=== PATIENT | female | born 1955 | race Caucasian/White ===

== ENCOUNTER 2017-10-15 17:30 | Emergency (ER) | payer OTHER ==
--- NOTE | 2017-10-15 17:37 | PDOC ---
Rapid Medical Evaluation Time Seen by Provider: 10/15/17 17:32 Medical Evaluation: 10/15/17 17:32 Pt presents with complaint of : low back pain x 3 days , Limited movement with bending On brief exam: no point tenderness, no weakness I have ordered the following: hip/pelvis, lumbar xray Pt will go to the Emergency Dept for further workup Discharge Disposition - Diagnosis Low back pain Qualifiers: Chronicity: acute Sciatica presence: without sciatica - Referrals Referrals: Dandre Cobian MD [Primary Care Provider] - - Patient Instructions - Post Discharge Activity
[2017-10-15 17:38] VITALS: TEMP 98; BMI 22.4
[2017-10-15 18:03] LABS: URINE APPEARANCE CLEAR; URINE BILIRUBIN NEGATIVE (NEGATIVE); URINE BLOOD NEGATIVE (NEGATIVE); URINE COLOR YELLOW; URINE GLUCOSE (UA) NEGATIVE (NEGATIVE); URINE KETONE TRACE (NEGATIVE); URINE NITRITE NEGATIVE (NEGATIVE); URINE PROTEIN NEGATIVE (NEGATIVE)
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
[2017-10-15 20:19] LABS: BASOPHIL 0.1 % (0-2.0); EOSINOPHIL 1.5 % (0-4.5); MCH 30.3 pg (25.7-33.7); MCHC 33.5 g/dl (32.0-36.0); MEAN CELL VOLUME 90.4 fl (80-96); MEAN PLT VOLUME 8.4 fl (7.5-11.1); NEUTROPHILS 56.6 % (42.8-82.8); PLATELET COUNT 292 K/MM3 (134-434); RDW 13.2 % (11.6-15.6); WHITE BLOOD COUNT 7.3 K/mm3 (4.0-10.0)
[2017-10-15 20:52] LABS: ALBUMIN 3.6 g/dl (3.4-5.0); ANION GAP 5 (8-16); CALCIUM 8.5 mg/dL (8.5-10.1); CO2 29 mmol/L (21-32); CREATININE 0.8 mg/dL (0.55-1.02); GLUCOSE,RANDOM 86 mg/dL (74-106); SGOT/AST 36 U/L (15-37); SGPT/ALT 60 U/L (12-78)
[2017-10-15 20:54] LABS: ALK PHOS 98 U/L (45-117); BILIRUBIN,TOTAL 0.6 mg/dL (0.2-1.0); TOT PROT 6.7 g/dl (6.4-8.2)
[2017-10-15 20:58] VITALS: BP 144/69
[2017-10-15 20:59] VITALS: PULSE 78
[2017-10-15 21:25] LABS: URINE LEUK ESTERASE Negative (NEGATIVE)
--- NOTE | 2017-10-16 00:12 | PDOC ---
History of Present Illness - General Chief Complaint: Pain Stated Complaint: BACK PAIN Time Seen by Provider: 10/15/17 17:32 Past History - Past Medical History Allergies/Adverse Reactions: Allergies Allergy/AdvReac Type Severity Reaction Status Date / Time Sulfa (Sulfonamide Allergy Verified 10/15/17 17:38 Antibiotics) Home Medications: Ambulatory Orders Alendronate Na [Fosamax] 70 mg PO Q7D 10/15/17 COPD: No Other medical history: osteoarthritis - Surgical History Appendectomy: Yes (1991) - Suicide/Smoking/Psychosocial Hx Smoking History: Never smoked *Physical Exam - Vital Signs Last Vital Signs Temp Pulse Resp BP Pulse Ox 98 F 78 19 144/69 98 10/15/17 17:32 10/15/17 20:57 10/15/17 20:57 10/15/17 20:57 10/15/17 20:57 ED Treatment Course - LABORATORY CBC & Chemistry Diagram: 10/15/17 19:46 10/15/17 19:46 - ADDITIONAL ORDERS Additional order review: Laboratory Results 10/15/17 10/15/17 19:46 17:40 Sodium 143 Potassium 3.9 Chloride 109 H Carbon Dioxide 29 Anion Gap 5 L BUN 17 Creatinine 0.8 Creat Clearance w eGFR > 60 Random Glucose 86 Calcium 8.5 Total Bilirubin 0.6 AST 36 ALT 60 Alkaline Phosphatase 98 Total Protein 6.7 Albumin 3.6 Urine Color Yellow Urine Appearance Clear Urine pH 6.0 Ur Specific [place] 1.028 Urine Protein Negative Urine Glucose (UA) Negative Urine Ketones Trace H Urine Blood Negative Urine Nitrite Negative Urine Bilirubin Negative Urine Urobilinogen 2.0 H Ur Leukocyte Esterase Negative 10/15/17 19:46 RBC 4.23 MCV 90.4 MCHC 33.5 RDW 13.2 MPV 8.4 Neutrophils % 56.6 Lymphocytes % 29.0 Monocytes % 12.8 H Eosinophils % 1.5 Basophils % 0.1 - RADIOLOGY Radiology Studies Ordered: Category Date Time Status ABDOMEN & PELVIS CT WITH CONTR [CT] Stat CT Scan 10/15/17 21:15 Completed Medical Decision Making - Medical Decision Making 10/16/17 00:11 62-year-old female sent over from fast track for further imaging study. Patient has a history of some chronic lower abdominal pain. CBC and chemistries were done. CAT scan did not show any acute abdominal pelvic pathology. It did show significant stool burden Impression constipation. Plan Colace and MiraLAX. Follow-up with her primary doctor *DC/Admit/Observation/Transfer Diagnosis at time of Disposition: Low back pain Qualifiers: Chronicity: acute Back pain laterality: bilateral Sciatica presence: without sciatica Qualified Code(s): M54.5 - Low back pain Constipation Qualifiers: Constipation type: unspecified constipation type Qualified Code(s): K59.00 - Constipation, unspecified - Discharge Dispostion Disposition: HOME Condition at time of disposition: Stable - Referrals Referrals: Dandre Cobian MD [Primary Care Provider] - - Patient Instructions Printed Discharge Instructions: DI for Constipation Additional Instructions: You may try MIRALAX for constipation followup with your primary physician - Post Discharge Activity
== END 2017-10-16 00:43 | disposition home or self-care (01) ==
LOC: JERFT 17:30 → JER 17:30
DX: M54.5 Low back pain (principal); M19.90 Unspecified osteoarthritis, unspecified site
CPT/HCPCS: 36415; 72100-TC; 72170-TC; 74177-TC; 80053; 81003; 85025; 87086; 99283-25